=== PATIENT | male | born 1975 | race Caucasian/White ===

== ENCOUNTER 2024-06-11 18:56 | Emergency (ER) | payer SELFPAY ==
[~2024-06-11] VITALS: Ht 180.3 cm; Wt 70.3 kg
[2024-06-11] MEDS ORDERED: Buprenorphine HCL/Naloxone HCL 8MG-2MG Tab SL ONE ×2 (20:15→21:20)
[2024-06-11] MEDS ORDERED: RX Prepack 2 Sprays Naloxone HCL 4 MG/SPRAY UD ONE (22:40)
[2024-06-11] MEDS ORDERED: SUBOXONE 8 MG-1 EACH SL (22:44)
== END 2024-06-11 23:00 | disposition home or self-care (01) ==
LOC: ER 18:56
DX: F11.21 Opioid dependence, in remission (principal); Z76.0 Encounter for issue of repeat prescription; I10 Essential (primary) hypertension
CPT/HCPCS: A9270

== ENCOUNTER 2024-06-27 12:38 | Emergency (ER) | payer OTHER ==
[~2024-06-27] VITALS: Ht 180.3 cm; Wt 77.1 kg
[~2024-06-27 12:38] MED LIST: SUBOXONE 8 MG-1 EACH SL
[2024-06-27] MEDS ORDERED: Buprenorphine HCL/Naloxone HCL 8MG-2MG Tab SL ONE (13:00)
[2024-06-27] MEDS ORDERED: BUPRENORPHIN-N1 EAC1 SL (13:11)
== END 2024-06-27 13:36 | disposition home or self-care (01) ==
LOC: ER 12:38
DX: F11.90 Opioid use, unspecified, uncomplicated (principal); I10 Essential (primary) hypertension; Z79.899 Other long term (current) drug therapy
CPT/HCPCS: A9270

== ENCOUNTER 2024-08-17 14:59 | Observation (INO) | payer OTHER ==
[~2024-08-17] VITALS: Ht 180.3 cm; Wt 79.4 kg
[~2024-08-17 14:59] MED LIST changes: +BUPRENORPHIN-N1 EAC1 SL; +SUBOXONE 12 MG1 EACH SL
[2024-08-17 16:10] LABS: BASOPHILS ABSOLUTE AUTO 0.05 K/mm3 (0.00-0.23); BASOPHILS PERCENT AUTO 0 % (0-2); EOSINOPHILS ABSOLUTE AUTO 0.05 K/mm3 (0.00-0.68); EOSINOPHILS PERCENT AUTO 0 % (0-6); Hematocrit 48.5 % (37.0-53.0); Hemoglobin 16.8 g/dL (13.5-17.5); IMMATURE GRAN ABSOLUTE AUTO 0.04 K/mm3 (0.00-0.10); IMMATURE GRAN PERCENT AUTO 0 % (0-1); LYMPHOCYTES ABSOLUTE AUTO 3.31 K/mm3 (0.84-5.20); LYMPHOCYTES PERCENT AUTO 24 % (21-46); MONOCYTES ABSOLUTE AUTO 1.02 K/mm3 (0.16-1.47); MONOCYTES PERCENT AUTO 8 % (4-13); Mean Corpuscular HGB 30.4 pg (26.0-34.0); Mean Corpuscular HGB Conc 34.6 g/dL (31.5-36.5); Mean Corpuscular Volume 88 fL (80-100); Mean Platelet Volume 10.1 fL (9.1-12.4); NEUTROPHILS ABSOLUTE AUTO 9.12 K/mm3 (1.96-9.15); NEUTROPHILS PERCENT AUTO 67 % (41-73); Platelet Count 331 K/mm3 (150-400); RDW Coefficient Variation 13.7 % (11.7-14.2); RDW Standard Deviation 44.4 fL (35.1-46.3); Red Blood Cell Count 5.52 M/mm3 (4.30-5.90); White Blood Cell Count 13.59 K/mm3 (4.00-11.30)
[2024-08-17 16:36] LABS: Ethanol (Alcohol), Blood, Med <3 mg/dL
[2024-08-17 16:44] LABS: Salicylate <1.7 mg/dL (2.8-20.0)
[2024-08-17 16:49] LABS: Acetaminophen, Random <2.0 ug/mL (10.0-30.0); Alanine Aminotransfer (ALT/SGP 24 U/L (12-78); Albumin, Blood 4.2 g/dL (3.4-5.0); Albumin/Globulin Ratio 1.1 (0.8-1.8); Alk Phos 99 U/L (50-136); Anion Gap 9 mmol/L (3-11); Aspartate Aminotrans (AST/SGOT 16 U/L (12-37); Bilirubin, Total 0.9 mg/dL (0.1-1.0); Blood Urea Nitrogen 20 mg/dL (8-24); Bun/Creatinine Ratio 22.6 (12.0-20.0); CO2, Blood 31 mmol/L (21-32); Calcium, Blood 9.6 mg/dL (8.5-10.1); Chloride, Blood 100 mmol/L (98-108); Creatinine, Blood 0.89 mg/dL (0.60-1.20); Globulin, Blood 3.8 g/dL (2.2-4.0); Glomerular Filtration Rate 106 (60-); Glucose, Blood 137 mg/dL (70-99); Potassium, Blood 3.7 mmol/L (3.5-5.5); Sodium, Blood 136 mmol/L (136-145)
[2024-08-17 17:26] LABS: Source, Urine Clean Catch
[2024-08-17 17:33] LABS: Appearance, Urine Hazy (Clear); Bilirubin, Urine Neg (Neg); Blood, Urine Neg (Neg); Color, Urine Yellow (P-Yellow); Glucose Qualitative, Urine Neg (Neg); Ketones, Urine 1+ (Neg); Leukocyte Esterase, Urine 1+ (Neg); Nitrite, Urine Neg (Neg); Protein, Urine 2+ (Neg); Urobilinogen, Urine 1+ (Normal)
[2024-08-17 17:39] LABS: Mucus Mod (0-Heavy)
[2024-08-17 17:40] LABS: Red Blood Cells, Urine 0-2 /hpf (0-2)
[2024-08-17 17:42] LABS: Bacteria Few /hpf; Squamous Epithelial Cells Not Seen /hpf (Few)
[2024-08-17 17:56] LABS: U Amphetamine Screen DETECTED; U Barbituate Screen Not Detected; U Benzodiazapine Screen Not Detected; U Buprenorphine Screen Not Detected; U Cannabinoids Screen DETECTED; U Cocaine Screen Not Detected; U Methadone Screen Not Detected; U Methamphetamine Screen DETECTED; U Opiates Screen Not Detected; U Oxycodone Screen Not Detected; U Phencyclidine Screen Not Detected
[2024-08-17] MEDS ORDERED: BUPRENORPHIN-N1 EAC5 SL (19:57)
[2024-08-17] MEDS ORDERED: Prinivil10 MG PO (19:58)
[2024-08-17] MEDS ORDERED: Buprenorphine HCL/Naloxone HCL 8MG-2MG Tab SL ONE (20:10)
[2024-08-17] MEDS ORDERED: Calcium Carbonate 500 MG Tab Chew PO PRN (20:10)
[2024-08-17 21:19] LABS: Influenza A, PCR NEGATIVE (NEGATIVE); Influenza B, PCR NEGATIVE (NEGATIVE); Resp Syncytial Virus, PCR NEGATIVE (NEGATIVE); SARS-Cov-2 (COVID-19) PCR, MMC NEGATIVE (NEGATIVE)
== END 2024-08-18 12:09 | disposition home or self-care (01) ==
LOC: ER 14:59 → EOR 15:00
PROVIDERS: Emergency Medicine; Physician Assistant; ADMIT Student in an Organized Health Care Education/Training Program
DX: F15.129 Other stimulant abuse with intoxication, unspecified (principal); F11.23 Opioid dependence with withdrawal; F17.210 Nicotine dependence, cigarettes, uncomplicated; I10 Essential (primary) hypertension; Z79.899 Other long term (current) drug therapy
CPT/HCPCS: 0241U; 80053; 80320; 81001; 85025; 86592; 87086; 99285-25; A9270; G0378; G0480